=== PATIENT | male | born 1975 | race Caucasian/White ===

== ENCOUNTER 2024-09-17 05:00 | Outpatient (RCR) | payer OTHER, SELFPAY | END 2024-10-17 23:59 | disposition home or self-care (01) | LOC: APT 05:00 | PROVIDERS: Visit Provider Clinical Nurse Specialist Adult Health | DX: M75.42 Impingement syndrome of left shoulder (principal) | CPT/HCPCS: 97161 ==

== ENCOUNTER 2024-10-18 05:00 | Outpatient (RCR) | payer OTHER, SELFPAY | END 2024-11-16 23:59 | disposition home or self-care (01) | LOC: APT 05:00 | PROVIDERS: Visit Provider Clinical Nurse Specialist Adult Health | DX: M75.42 Impingement syndrome of left shoulder (principal) | CPT/HCPCS: 97110; 97112; 97530 ==